=== PATIENT | male | born 1955 | race Caucasian/White ===

== ENCOUNTER 2018-01-18 20:13 | Inpatient (IN) | payer OTHER ==
[~2018-01-18] VITALS: Ht 182.9 cm; Wt 93.9 kg
[2018-01-18] MEDS ORDERED: ATEN5POW PO (20:43)
[2018-01-18] MEDS ORDERED: FAMOTIDINE 20 MG/2 ML ONE (21:13)
[2018-01-18 21:17] LABS: BASOPHILS # (AUTO) 0.05 x10^3/uL (0-0.1); BASOPHILS % (AUTO) 0 % (0-1); EOSINOPHILS # (AUTO) 0.11 x10^3/uL (0-0.4); EOSINOPHILS % (AUTO) 1 % (1-7); LYMPHOCYTES # (AUTO) 1.33 x10^3/uL (1-3.4); LYMPHOCYTES % (AUTO) 9 % (22-44); MD NO; MEAN CORPUSCULAR HEMOGLOBIN 31.5 pg (27.5-34.5); MEAN CORPUSCULAR HGB CONC 33.7 g/dL (33.2-36.2); MEAN CORPUSCULAR VOLUME 93.5 fL (81-97); MEAN PLATELET VOLUME 10.2 fL (7.4-10.4); MONOCYTES # (AUTO) 0.65 x10^3/uL (0.2-0.8); MONOCYTES % (AUTO) 4 % (2-9); NEUTROPHILS # (AUTO) 13.08 x10^3/uL (1.8-6.8); NEUTROPHILS % (AUTO) 86 % (42-75); PLATELET COUNT 295 x10^3/uL (130-400); RED BLOOD COUNT 5.06 x10^6/uL (4.38-5.82); RED CELL DISTRIBUTION WIDTH 13.6 % (9.4-14.8)
[2018-01-18 21:27] LABS: ALANINE AMINOTRANSFERASE 27 U/L (12-78); ANION GAP 10 mmol/L (5-15); CALCIUM 9.1 mg/dL (8.5-10.1); CHLORIDE 108 mmol/L (98-107); CREATININE 1.21 mg/dL (0.7-1.3)
[2018-01-18 21:30] LABS: ALKALINE PHOSPHATASE 55 U/L (45-117); BILIRUBIN,TOTAL 0.9 mg/dL (0.2-1.0); TOTAL PROTEIN 7.8 g/dL (6.4-8.2)
[2018-01-18] MEDS ORDERED: SODIUM CHLORIDE 0.9% 1,000ML IVBOLUS ONE (21:30)
[2018-01-18] MEDS ORDERED: ONDANSETRON ODT 4 MG PO ONE (21:30)
[2018-01-18] MEDS ORDERED: ONDANSETRON 2MG/ML, 2ML IVPush ONE (21:30)
[2018-01-18] MEDS ORDERED: FAMOTIDINE 20 MG/2 ML IVP ONE (21:30)
[2018-01-18] MEDS ORDERED: SODIUM CHLORIDE FLUSH 10ML SYR IVF ONE (21:30)
[2018-01-18 21:34] LABS: MICROSCOPIC NOT IND
[2018-01-18] MEDS ORDERED: ONDANSETRON ODT 4 MG ONE (21:40)
[2018-01-18 21:41] LABS: CULTURE INDICATED? NO
[2018-01-18] MEDS ORDERED: OMNIPAQUE 350 MG/ML, 100ML BOTTLE ONE (22:11)
[2018-01-18] MEDS ORDERED: CIPROFLOXACIN/PMX 400MG/200ML 200 ML IV ONE (23:00)
[2018-01-18] MEDS ORDERED: METRONIDAZOLE PMX 500MG/100ML 100 ML IV ONE (23:00)
[2018-01-18] MEDS ORDERED: SODIUM CHLORIDE 0.9% 1,000 ML IV ONE (23:03)
[2018-01-18] MEDS ORDERED: METRONIDAZOLE PMX 500MG/100ML 100 ML ONE (23:14)
[2018-01-18] MEDS ORDERED: MORPHINE SULFATE 4 MG/ML, 1ML ONE (23:15)
[2018-01-18] MEDS ORDERED: CIPROFLOXACIN/PMX 400MG/200ML 200 ML ONE (23:15)
[2018-01-18] MEDS: SODIUM CHLORIDE 0.9% 1,000 ML IV SCH (23:17)
[2018-01-18] MEDS ORDERED: MORPHINE SULFATE 4 MG/ML, 1ML IVPush PRN (23:30)
[2018-01-18] MEDS ORDERED: METRONIDAZOLE PMX 500MG/100ML 100 ML IV SCH (23:30)
[2018-01-18] MEDS ORDERED: ACETAMINOPHEN 325 MG TABLET PO PRN (23:30)
[2018-01-18] MEDS ORDERED: PROCHLORPERAZINE 5 MG/ML, 2ML IVPush PRN (23:30)
[2018-01-18] MEDS ORDERED: CIPROFLOXACIN/PMX 400MG/200ML 200 ML IV SCH (23:30)
[2018-01-19 00:13] VITALS: BP 125/75
[2018-01-19] MEDS ORDERED: KETOROLAC 30 MG/1 ML ONE (01:23)
[2018-01-19] MEDS: KETOROLAC 30 MG/1 ML IVPush PRN ×3 (01:26→16:28)
[2018-01-19 02:00] VITALS: BP 129/68
[2018-01-19] MEDS ORDERED: MORPHINE SULFATE 4 MG/ML, 1ML ONE ×3 (04:04→19:53)
[2018-01-19] MEDS: morphine SULFATE 10 MG/ML, 1ML IVPush PRN ×3 (04:07→19:57)
[2018-01-19 04:30] LABS: BASOPHILS # (AUTO) 0.06 x10^3/uL (0-0.1); BASOPHILS % (AUTO) 1 % (0-1); EOSINOPHILS # (AUTO) 0.01 x10^3/uL (0-0.4); EOSINOPHILS % (AUTO) 0 % (1-7); LYMPHOCYTES # (AUTO) 0.67 x10^3/uL (1-3.4); LYMPHOCYTES % (AUTO) 5 % (22-44); MD NO; MEAN CORPUSCULAR HEMOGLOBIN 31.5 pg (27.5-34.5); MEAN CORPUSCULAR HGB CONC 33.9 g/dL (33.2-36.2); MEAN CORPUSCULAR VOLUME 92.9 fL (81-97); MEAN PLATELET VOLUME 10.5 fL (7.4-10.4); MONOCYTES # (AUTO) 0.75 x10^3/uL (0.2-0.8); MONOCYTES % (AUTO) 6 % (2-9); NEUTROPHILS # (AUTO) 11.28 x10^3/uL (1.8-6.8); NEUTROPHILS % (AUTO) 88 % (42-75); PLATELET COUNT 277 x10^3/uL (130-400); RED BLOOD COUNT 4.67 x10^6/uL (4.38-5.82); RED CELL DISTRIBUTION WIDTH 13.8 % (9.4-14.8)
[2018-01-19 04:42] LABS: CHLORIDE 109 mmol/L (98-107)
[2018-01-19 04:46] LABS: ANION GAP 9 mmol/L (5-15); CALCIUM 8.2 mg/dL (8.5-10.1); CREATININE 1.09 mg/dL (0.7-1.3)
[2018-01-19] MEDS: ATENOLOL 25 MG TABLET PO SCH (06:02)
[2018-01-19] MEDS: SODIUM CHLORIDE 0.9% 1,000 ML IV SCH ×3 (07:45→19:51)
[2018-01-19 08:37] VITALS: BP 121/66
[2018-01-19] MEDS: METRONIDAZOLE PMX 500MG/100ML 100 ML IV SCH ×3 (08:58→23:31)
[2018-01-19] MEDS: CIPROFLOXACIN/PMX 400MG/200ML 200 ML IV SCH (12:24)
[2018-01-19 13:54] VITALS: BP 119/75
[2018-01-19 19:55] VITALS: BP 116/73
[2018-01-19] MEDS: ACETAMINOPHEN 500 MG TABLET PO PRN (23:35)
[2018-01-20] MEDS: CIPROFLOXACIN/PMX 400MG/200ML 200 ML IV SCH ×2 (00:47→13:01)
[2018-01-20 01:50] VITALS: BP 117/61
[2018-01-20] MEDS: SODIUM CHLORIDE 0.9% 1,000 ML IV SCH (04:04)
[2018-01-20 04:40] LABS: ANION GAP 4 mmol/L (5-15); CALCIUM 7.9 mg/dL (8.5-10.1); CHLORIDE 108 mmol/L (98-107); CREATININE 1.15 mg/dL (0.7-1.3)
[2018-01-20 04:46] LABS: BASOPHILS # (AUTO) 0.02 x10^3/uL (0-0.1); BASOPHILS % (AUTO) 0 % (0-1); EOSINOPHILS # (AUTO) 0.05 x10^3/uL (0-0.4); EOSINOPHILS % (AUTO) 1 % (1-7); LYMPHOCYTES # (AUTO) 1.25 x10^3/uL (1-3.4); LYMPHOCYTES % (AUTO) 12 % (22-44); MD NO; MEAN CORPUSCULAR HEMOGLOBIN 31.6 pg (27.5-34.5); MEAN CORPUSCULAR HGB CONC 33.8 g/dL (33.2-36.2); MEAN CORPUSCULAR VOLUME 93.5 fL (81-97); MEAN PLATELET VOLUME 10.6 fL (7.4-10.4); MONOCYTES # (AUTO) 0.48 x10^3/uL (0.2-0.8); MONOCYTES % (AUTO) 5 % (2-9); NEUTROPHILS # (AUTO) 8.76 x10^3/uL (1.8-6.8); NEUTROPHILS % (AUTO) 83 % (42-75); PLATELET COUNT 213 x10^3/uL (130-400); RED BLOOD COUNT 4.02 x10^6/uL (4.38-5.82); RED CELL DISTRIBUTION WIDTH 13.4 % (9.4-14.8)
[2018-01-20] MEDS: ATENOLOL 25 MG TABLET PO SCH (05:05)
[2018-01-20] MEDS: METRONIDAZOLE PMX 500MG/100ML 100 ML IV SCH ×2 (07:51→15:51)
[2018-01-20 07:56] VITALS: BP 120/84
[2018-01-20] MEDS ORDERED: MORPHINE SULFATE 4 MG/ML, 1ML ONE (09:25)
[2018-01-20] MEDS: KETOROLAC 30 MG/1 ML IVPush PRN (11:03)
[2018-01-20 12:44] VITALS: BP 154/81
[2018-01-20 20:05] VITALS: BP 156/83
[2018-01-20] MEDS: ACETAMINOPHEN 500 MG TABLET PO PRN (20:16)
[2018-01-20] MEDS: PIPERACILLIN/TAZO/PMX 3.375GM 50 ML IV SCH (23:59)
[2018-01-21 05:00] VITALS: BP 123/71
[2018-01-21] MEDS: ATENOLOL 25 MG TABLET PO SCH (06:15)
[2018-01-21] MEDS: PIPERACILLIN/TAZO/PMX 3.375GM 50 ML IV SCH ×4 (06:42→23:31)
[2018-01-21 06:53] LABS: CLOSTRIDIUM DIFFICILE ANTIGEN NEGATIVE; CLOSTRIDIUM DIFFICILE TOXIN NEGATIVE (Negative)
[2018-01-21 09:05] VITALS: BP 124/83
[2018-01-21] MEDS ORDERED: OMNIPAQUE 350 MG/ML, 100ML BOTTLE ONE (09:55)
[2018-01-21] MEDS: SODIUM CHLORIDE 0.9% 1,000 ML IV SCH ×2 (12:26→21:00)
[2018-01-21 13:00] VITALS: BP 108/66
[2018-01-21 19:53] VITALS: BP 136/73
[2018-01-22 01:10] VITALS: BP 143/80
[2018-01-22] MEDS: SODIUM CHLORIDE 0.9% 1,000 ML IV SCH ×3 (05:46→21:32)
[2018-01-22] MEDS: PIPERACILLIN/TAZO/PMX 3.375GM 50 ML IV SCH ×4 (05:46→23:57)
[2018-01-22] MEDS: ATENOLOL 25 MG TABLET PO SCH (06:00)
[2018-01-22 06:24] LABS: BASOPHILS # (AUTO) 0.05 x10^3/uL (0-0.1); BASOPHILS % (AUTO) 1 % (0-1); EOSINOPHILS # (AUTO) 0.06 x10^3/uL (0-0.4); EOSINOPHILS % (AUTO) 1 % (1-7); LYMPHOCYTES # (AUTO) 1.19 x10^3/uL (1-3.4); LYMPHOCYTES % (AUTO) 11 % (22-44); MD NO; MEAN CORPUSCULAR HEMOGLOBIN 31.7 pg (27.5-34.5); MEAN CORPUSCULAR HGB CONC 33.7 g/dL (33.2-36.2); MEAN CORPUSCULAR VOLUME 94.1 fL (81-97); MEAN PLATELET VOLUME 10.6 fL (7.4-10.4); MONOCYTES # (AUTO) 0.84 x10^3/uL (0.2-0.8); MONOCYTES % (AUTO) 8 % (2-9); NEUTROPHILS # (AUTO) 8.57 x10^3/uL (1.8-6.8); NEUTROPHILS % (AUTO) 80 % (42-75); PLATELET COUNT 274 x10^3/uL (130-400); RED BLOOD COUNT 4.97 x10^6/uL (4.38-5.82); RED CELL DISTRIBUTION WIDTH 13.7 % (9.4-14.8)
[2018-01-22 06:26] LABS: ANION GAP 10 mmol/L (5-15); CALCIUM 8.4 mg/dL (8.5-10.1); CHLORIDE 111 mmol/L (98-107); CREATININE 1.01 mg/dL (0.7-1.3)
[2018-01-22 06:45] VITALS: BP 136/88
[2018-01-22 12:30] VITALS: BP 140/92
[2018-01-22 20:00] VITALS: BP 145/112
[2018-01-23 00:25] VITALS: BP 127/83
[2018-01-23] MEDS: SODIUM CHLORIDE 0.9% 1,000 ML IV SCH ×3 (04:20→20:55)
[2018-01-23] MEDS: PIPERACILLIN/TAZO/PMX 3.375GM 50 ML IV SCH ×3 (05:58→17:38)
[2018-01-23] MEDS: ATENOLOL 25 MG TABLET PO SCH ×2 (05:58→06:00)
[2018-01-23 07:23] LABS: BASOPHILS # (AUTO) 0.03 x10^3/uL (0-0.1); BASOPHILS % (AUTO) 0 % (0-1); EOSINOPHILS % (AUTO) 1 % (1-7); LYMPHOCYTES # (AUTO) 1.22 x10^3/uL (1-3.4); LYMPHOCYTES % (AUTO) 10 % (22-44); MD NO; MEAN CORPUSCULAR HEMOGLOBIN 31.3 pg (27.5-34.5); MEAN CORPUSCULAR HGB CONC 33.7 g/dL (33.2-36.2); MEAN CORPUSCULAR VOLUME 92.8 fL (81-97); MEAN PLATELET VOLUME 10.2 fL (7.4-10.4); MONOCYTES # (AUTO) 1.08 x10^3/uL (0.2-0.8); MONOCYTES % (AUTO) 9 % (2-9); NEUTROPHILS % (AUTO) 79 % (42-75); PLATELET COUNT 314 x10^3/uL (130-400); RED BLOOD COUNT 4.96 x10^6/uL (4.38-5.82); RED CELL DISTRIBUTION WIDTH 13.4 % (9.4-14.8)
[2018-01-23 07:34] LABS: ANION GAP 13 mmol/L (5-15); CHLORIDE 111 mmol/L (98-107); CREATININE 1.06 mg/dL (0.7-1.3)
[2018-01-23 07:52] VITALS: BP 136/84
[2018-01-23 13:29] VITALS: BP 128/93
[2018-01-23 20:38] VITALS: BP 150/88
[2018-01-24] MEDS: PIPERACILLIN/TAZO/PMX 3.375GM 50 ML IV SCH ×3 (00:04→12:30)
[2018-01-24 02:58] VITALS: BP 137/89
[2018-01-24] MEDS: SODIUM CHLORIDE 0.9% 1,000 ML IV SCH ×2 (04:00→12:00)
[2018-01-24] MEDS: ATENOLOL 25 MG TABLET PO SCH (05:41)
[2018-01-24 06:01] LABS: BASOPHILS # (AUTO) 0.07 x10^3/uL (0-0.1); BASOPHILS % (AUTO) 1 % (0-1); EOSINOPHILS % (AUTO) 1 % (1-7); LYMPHOCYTES # (AUTO) 1.41 x10^3/uL (1-3.4); LYMPHOCYTES % (AUTO) 13 % (22-44); MD NO; MEAN CORPUSCULAR HEMOGLOBIN 31.3 pg (27.5-34.5); MEAN CORPUSCULAR HGB CONC 33.7 g/dL (33.2-36.2); MEAN PLATELET VOLUME 9.9 fL (7.4-10.4); MONOCYTES % (AUTO) 10 % (2-9); NEUTROPHILS % (AUTO) 76 % (42-75); PLATELET COUNT 290 x10^3/uL (130-400); RED BLOOD COUNT 4.26 x10^6/uL (4.38-5.82); RED CELL DISTRIBUTION WIDTH 13.2 % (9.4-14.8)
[2018-01-24 06:05] LABS: ANION GAP 9 mmol/L (5-15); CALCIUM 7.8 mg/dL (8.5-10.1); CHLORIDE 113 mmol/L (98-107)
[2018-01-24 06:07] LABS: CREATININE 0.92 mg/dL (0.7-1.3)
[2018-01-24 06:50] VITALS: BP 112/65
[2018-01-24 12:00] VITALS: BP 128/79
[2018-01-24] MEDS: ACETAMINOPHEN 500 MG TABLET PO PRN ×2 (12:06→18:00)
[2018-01-24 14:48] VITALS: BP 136/91
[2018-01-24] MEDS ORDERED: AMOXICILLIN/CLAV 875-125MG TABLET PO SCH ×2 (16:30→22:00)
[2018-01-24] MEDS: AMOXICILLIN/CLAV 875-125MG TABLET PO SCH (17:37)
[2018-01-24 19:26] VITALS: BP 167/89
[2018-01-25 01:27] VITALS: BP 120/89
[2018-01-25] MEDS: AMOXICILLIN/CLAV 875-125MG TABLET PO SCH ×2 (01:35→09:49)
[2018-01-25 05:54] LABS: BASOPHILS # (AUTO) 0.04 x10^3/uL (0-0.1); BASOPHILS % (AUTO) 0 % (0-1); EOSINOPHILS # (AUTO) 0.09 x10^3/uL (0-0.4); EOSINOPHILS % (AUTO) 1 % (1-7); LYMPHOCYTES # (AUTO) 1.34 x10^3/uL (1-3.4); LYMPHOCYTES % (AUTO) 11 % (22-44); MD NO; MEAN CORPUSCULAR HEMOGLOBIN 31.8 pg (27.5-34.5); MEAN CORPUSCULAR HGB CONC 34.1 g/dL (33.2-36.2); MEAN CORPUSCULAR VOLUME 93.3 fL (81-97); MEAN PLATELET VOLUME 11.1 fL (7.4-10.4); MONOCYTES # (AUTO) 1.18 x10^3/uL (0.2-0.8); MONOCYTES % (AUTO) 10 % (2-9); NEUTROPHILS # (AUTO) 9.31 x10^3/uL (1.8-6.8); NEUTROPHILS % (AUTO) 78 % (42-75); PLATELET COUNT 306 x10^3/uL (130-400); RED CELL DISTRIBUTION WIDTH 13.2 % (9.4-14.8)
[2018-01-25 06:17] LABS: CALCIUM 8.3 mg/dL (8.5-10.1); CREATININE 0.85 mg/dL (0.7-1.3)
[2018-01-25 06:21] LABS: ANION GAP 10 mmol/L (5-15); CHLORIDE 109 mmol/L (98-107)
[2018-01-25 06:35] VITALS: BP 150/82
[2018-01-25] MEDS: ATENOLOL 25 MG TABLET PO SCH (06:36)
[2018-01-25 08:06] VITALS: BP 145/86
[2018-01-25] MEDS: ACETAMINOPHEN 500 MG TABLET PO PRN (09:49)
[2018-01-25] MEDS ORDERED: SODIUM CHLORIDE 0.9% 500 ML IV SCH (11:00)
[2018-01-25 12:44] VITALS: BP 169/97
[2018-01-25] MEDS ORDERED: OMNIPAQUE 350 MG/ML, 100ML BOTTLE ONE (13:19)
[2018-01-25] MEDS: SODIUM CHLORIDE 0.9% 1,000 ML IV SCH ×2 (15:53→23:27)
[2018-01-25] MEDS: PIPERACILLIN/TAZO/PMX 3.375GM 50 ML IV SCH ×2 (15:53→23:26)
[2018-01-25] MEDS ORDERED: FENTANYL PF 250 MCG/5ML ONE (18:09)
[2018-01-25] MEDS ORDERED: DEXAMETHASONE 4 MG/ML, 1ML ONE (18:57)
[2018-01-25] MEDS ORDERED: MEPERIDINE/PF 25MG/0.5ML IVPush PRN (19:00)
[2018-01-25] MEDS ORDERED: ACETAMINOPHEN 325 MG TABLET PO PRN (19:00)
[2018-01-25] MEDS ORDERED: FENTANYL PF 100 MCG/2ML IV PRN (19:00)
[2018-01-25] MEDS ORDERED: LABETALOL 5MG/ML, 20ML IV PRN (19:00)
[2018-01-25] MEDS ORDERED: ONDANSETRON ODT 4 MG PO PRN (19:00)
[2018-01-25] MEDS ORDERED: ONDANSETRON 2MG/ML, 2ML IVPush PRN (19:00)
[2018-01-25] MEDS ORDERED: PROMETHAZINE 12.5 MG SUPP PR PRN (19:00)
[2018-01-25] MEDS ORDERED: hydrALAzine 20 MG/ML, 1ML IV PRN (19:00)
[2018-01-25] MEDS ORDERED: OXYcodone 5 MG/5 ML ORAL.SOL UDC PO PRN (19:00)
[2018-01-25] MEDS ORDERED: METOPROLOL 1 MG/ML, 5ML ONE (19:31)
[2018-01-25] MEDS ORDERED: PROPOFOL 10 MG/ML, 20ML ONE ×3 (20:42)
[2018-01-25] MEDS ORDERED: ROCURONIUM 10 MG/ML,10ML ONE (20:43)
[2018-01-25] MEDS ORDERED: SUCCINYLCHOLINE 20 MG/ML, 10ML ONE (20:43)
[2018-01-25] MEDS ORDERED: CEFOTETAN PMX 2GM/50ML 50 ML ONE (20:44)
[2018-01-25] MEDS ORDERED: MEPERIDINE/PF 25MG/0.5ML ONE (21:12)
[2018-01-25] MEDS ORDERED: HYDROmorphone 2 MG/ML, 1ML ONE (21:12)
[2018-01-25] MEDS: HYDROmorphone 1 MG/ML, 1ML IV PRN ×2 (21:34→21:43)
[2018-01-25] MEDS ORDERED: DILTIAZEM 125 MG in SODIUM CHLORIDE 0.9% 100 ML IV PRN (23:00)
[2018-01-26] MEDS ORDERED: LORazepam 2 MG/ML, 1ML IM PRN
[2018-01-26] MEDS: ATENOLOL 25 MG TABLET PO SCH (03:59)
[2018-01-26 04:00] VITALS: BP 108/73
[2018-01-26] MEDS: PIPERACILLIN/TAZO/PMX 3.375GM 50 ML IV SCH ×4 (04:10→20:37)
[2018-01-26] MEDS: SODIUM CHLORIDE 0.9% 1,000 ML IV SCH ×2 (08:02→22:12)
[2018-01-26] MEDS: morphine SULFATE 10 MG/ML, 1ML IVPush PRN ×5 (08:15→17:48)
[2018-01-26] MEDS ORDERED: ATENOLOL 25 MG TABLET PO ONE (15:30)
[2018-01-26] MEDS ORDERED: MORPHINE SULFATE 4 MG/ML, 1ML ONE (20:33)
[2018-01-26 20:43] VITALS: BP 129/87
[2018-01-26] MEDS ORDERED: morphine SULFATE 10 MG/ML, 1ML IVPush PRN (21:00)
[2018-01-27] MEDS: ACETAMINOPHEN 500 MG TABLET PO PRN (00:23)
[2018-01-27] MEDS: PIPERACILLIN/TAZO/PMX 3.375GM 50 ML IV SCH ×4 (02:28→20:05)
[2018-01-27 04:06] VITALS: BP 125/80
[2018-01-27 05:10] LABS: ALANINE AMINOTRANSFERASE 19 U/L (12-78); ALBUMIN 2.3 g/dL (3.4-5.0); ANION GAP 4 mmol/L (5-15); CALCIUM 7.9 mg/dL (8.5-10.1); CHLORIDE 112 mmol/L (98-107); CREATININE 1.04 mg/dL (0.7-1.3)
[2018-01-27 05:12] LABS: ALKALINE PHOSPHATASE 39 U/L (45-117); BILIRUBIN,TOTAL 0.8 mg/dL (0.2-1.0); TOTAL PROTEIN 5.9 g/dL (6.4-8.2)
[2018-01-27 05:16] LABS: BASOPHILS # (AUTO) 0.02 x10^3/uL (0-0.1); BASOPHILS % (AUTO) 0 % (0-1); EOSINOPHILS # (AUTO) 0.14 x10^3/uL (0-0.4); EOSINOPHILS % (AUTO) 2 % (1-7); LYMPHOCYTES # (AUTO) 1.07 x10^3/uL (1-3.4); LYMPHOCYTES % (AUTO) 11 % (22-44); MD NO; MEAN CORPUSCULAR HGB CONC 32.8 g/dL (33.2-36.2); MEAN CORPUSCULAR VOLUME 94.4 fL (81-97); MEAN PLATELET VOLUME 10.9 fL (7.4-10.4); MONOCYTES # (AUTO) 0.81 x10^3/uL (0.2-0.8); MONOCYTES % (AUTO) 9 % (2-9); NEUTROPHILS # (AUTO) 7.42 x10^3/uL (1.8-6.8); NEUTROPHILS % (AUTO) 79 % (42-75); PLATELET COUNT 351 x10^3/uL (130-400); RED BLOOD COUNT 4.14 x10^6/uL (4.38-5.82); RED CELL DISTRIBUTION WIDTH 13.5 % (9.4-14.8)
[2018-01-27] MEDS: ATENOLOL 50 MG TABLET PO SCH (05:47)
[2018-01-27 06:50] VITALS: BP 125/88
[2018-01-27] MEDS ORDERED: OXYcodone IR 5MG TABLET PO PRN (07:30)
[2018-01-27] MEDS: ENOXAPARIN 40 MG/0.4 ML SQ SCH (09:11)
[2018-01-27] MEDS: ACETAMINOPHEN 500 MG TABLET PO SCH ×3 (09:11→20:05)
[2018-01-27] MEDS ORDERED: LACTATED RINGERS 500 ML IVBOLUS ONE ×2 (11:30→14:00)
[2018-01-27] MEDS: SODIUM CHLORIDE 0.9% 1,000 ML IV SCH (13:55)
[2018-01-27 14:10] VITALS: BP 126/54
[2018-01-27 14:39] LABS: TROPONIN I < 0.015 ng/mL (0.000-0.045)
[2018-01-27 18:48] VITALS: BP 125/82
[2018-01-27] MEDS: ASPIRIN 81 MG TABLET EC PO SCH (22:25)
[2018-01-28 00:57] VITALS: BP 139/85
[2018-01-28] MEDS: SODIUM CHLORIDE 0.9% 1,000 ML IV SCH (02:19)
[2018-01-28] MEDS: PIPERACILLIN/TAZO/PMX 3.375GM 50 ML IV SCH ×4 (02:19→20:56)
[2018-01-28] MEDS: ACETAMINOPHEN 500 MG TABLET PO SCH ×3 (03:14→15:00)
[2018-01-28 04:55] LABS: BASOPHILS # (AUTO) 0.07 x10^3/uL (0-0.1); BASOPHILS % (AUTO) 1 % (0-1); EOSINOPHILS % (AUTO) 1 % (1-7); LYMPHOCYTES # (AUTO) 0.97 x10^3/uL (1-3.4); LYMPHOCYTES % (AUTO) 11 % (22-44); MD NO; MEAN CORPUSCULAR HEMOGLOBIN 30.9 pg (27.5-34.5); MEAN CORPUSCULAR HGB CONC 33.1 g/dL (33.2-36.2); MEAN CORPUSCULAR VOLUME 93.5 fL (81-97); MONOCYTES # (AUTO) 0.54 x10^3/uL (0.2-0.8); MONOCYTES % (AUTO) 6 % (2-9); NEUTROPHILS # (AUTO) 7.32 x10^3/uL (1.8-6.8); NEUTROPHILS % (AUTO) 81 % (42-75); PLATELET COUNT 370 x10^3/uL (130-400); RED BLOOD COUNT 4.46 x10^6/uL (4.38-5.82); RED CELL DISTRIBUTION WIDTH 13.6 % (9.4-14.8)
[2018-01-28 05:06] LABS: ANION GAP 8 mmol/L (5-15); CALCIUM 7.8 mg/dL (8.5-10.1); CHLORIDE 107 mmol/L (98-107); CREATININE 0.87 mg/dL (0.7-1.3)
[2018-01-28 05:08] VITALS: BP 154/104
[2018-01-28] MEDS: ATENOLOL 50 MG TABLET PO SCH (05:10)
[2018-01-28] MEDS ORDERED: POTASSIUM CHLORIDE 40 MEQ in SODIUM CHLORIDE 0.9% 500 ML IV ONE (06:30)
[2018-01-28] MEDS ORDERED: D5%-0.45NACL+KCL 20MEQ 1,000 ML IV SCH (06:30)
[2018-01-28] MEDS: METOCLOPRAMIDE 5 MG/ML, 2ML IVPush SCH ×3 (09:16→20:57)
[2018-01-28] MEDS: ENOXAPARIN 40 MG/0.4 ML SQ SCH (09:17)
[2018-01-28 15:42] VITALS: BP 128/83
[2018-01-28] MEDS ORDERED: PANTOPRAZOLE 40 MG IV ONE (16:25)
[2018-01-28] MEDS: PANTOPRAZOLE 40 MG IV IVPush SCH (16:29)
[2018-01-28] MEDS ORDERED: ATENOLOL 50 MG TABLET PO ONE (16:30)
[2018-01-28] MEDS ORDERED: MELATONIN 5 MG TABLET PO PRN (16:30)
[2018-01-28 20:53] VITALS: BP 145/92
[2018-01-28] MEDS: ASPIRIN 81 MG TABLET EC PO SCH (20:57)
[2018-01-28] MEDS ORDERED: POTASSIUM CHLORIDE 10% 40 MEQ/30 ML UDC PO SCH (21:00)
[2018-01-29] MEDS: PIPERACILLIN/TAZO/PMX 3.375GM 50 ML IV SCH ×4 (03:08→20:54)
[2018-01-29] MEDS: METOCLOPRAMIDE 5 MG/ML, 2ML IVPush SCH ×4 (03:09→20:55)
[2018-01-29 03:10] VITALS: BP 133/82
[2018-01-29 04:45] LABS: BASOPHILS # (AUTO) 0.04 x10^3/uL (0-0.1); BASOPHILS % (AUTO) 1 % (0-1); EOSINOPHILS % (AUTO) 3 % (1-7); LYMPHOCYTES # (AUTO) 1.15 x10^3/uL (1-3.4); LYMPHOCYTES % (AUTO) 17 % (22-44); MD NO; MEAN CORPUSCULAR HEMOGLOBIN 31.1 pg (27.5-34.5); MEAN CORPUSCULAR HGB CONC 33.2 g/dL (33.2-36.2); MEAN CORPUSCULAR VOLUME 93.8 fL (81-97); MEAN PLATELET VOLUME 10.8 fL (7.4-10.4); MONOCYTES # (AUTO) 0.68 x10^3/uL (0.2-0.8); MONOCYTES % (AUTO) 10 % (2-9); NEUTROPHILS # (AUTO) 4.61 x10^3/uL (1.8-6.8); NEUTROPHILS % (AUTO) 69 % (42-75); PLATELET COUNT 349 x10^3/uL (130-400); RED BLOOD COUNT 4.12 x10^6/uL (4.38-5.82); RED CELL DISTRIBUTION WIDTH 13.3 % (9.4-14.8)
[2018-01-29 04:55] LABS: CHLORIDE 111 mmol/L (98-107)
[2018-01-29 05:03] LABS: ALANINE AMINOTRANSFERASE 23 U/L (12-78); ALBUMIN 2.3 g/dL (3.4-5.0); ALKALINE PHOSPHATASE 61 U/L (45-117); ANION GAP 7 mmol/L (5-15); BILIRUBIN,TOTAL 0.9 mg/dL (0.2-1.0); CALCIUM 7.5 mg/dL (8.5-10.1); CREATININE 0.89 mg/dL (0.7-1.3); TOTAL PROTEIN 5.8 g/dL (6.4-8.2)
[2018-01-29] MEDS ORDERED: ATENOLOL 50 MG TABLET PO SCH (06:00)
[2018-01-29] MEDS: ATENOLOL 50 MG TABLET PO SCH (06:30)
[2018-01-29 07:00] VITALS: BP 136/92
[2018-01-29] MEDS: ENOXAPARIN 40 MG/0.4 ML SQ SCH (08:18)
[2018-01-29 13:55] VITALS: BP 138/95
[2018-01-29] MEDS: D5%-0.45NACL+KCL 20MEQ 1,000 ML IV SCH (16:02)
[2018-01-29] MEDS: PANTOPRAZOLE 40 MG IV IVPush SCH (17:10)
[2018-01-29 20:00] VITALS: BP 129/89
[2018-01-29] MEDS: ASPIRIN 81 MG TABLET EC PO SCH (20:39)
[2018-01-29] MEDS: ACETAMINOPHEN 500 MG TABLET PO PRN (20:54)
[2018-01-30] MEDS: METOCLOPRAMIDE 5 MG/ML, 2ML IVPush SCH ×2 (02:49→07:16)
[2018-01-30] MEDS: PIPERACILLIN/TAZO/PMX 3.375GM 50 ML IV SCH (02:49)
[2018-01-30 03:27] VITALS: BP 127/78
[2018-01-30 05:16] LABS: CHLORIDE 106 mmol/L (98-107)
[2018-01-30 05:23] LABS: ALANINE AMINOTRANSFERASE 56 U/L (12-78); ALBUMIN 2.5 g/dL (3.4-5.0); ALKALINE PHOSPHATASE 80 U/L (45-117); ANION GAP 9 mmol/L (5-15); BILIRUBIN,TOTAL 1.4 mg/dL (0.2-1.0); CALCIUM 7.8 mg/dL (8.5-10.1); CREATININE 0.97 mg/dL (0.7-1.3); TOTAL PROTEIN 6.2 g/dL (6.4-8.2)
[2018-01-30] MEDS: ATENOLOL 50 MG TABLET PO SCH (05:58)
[2018-01-30 06:26] LABS: BASOPHILS # (AUTO) 0.06 x10^3/uL (0-0.1); BASOPHILS % (AUTO) 1 % (0-1); EOSINOPHILS # (AUTO) 0.15 x10^3/uL (0-0.4); EOSINOPHILS % (AUTO) 2 % (1-7); LYMPHOCYTES # (AUTO) 0.81 x10^3/uL (1-3.4); LYMPHOCYTES % (AUTO) 10 % (22-44); MD SCAN; MEAN CORPUSCULAR HEMOGLOBIN 31.2 pg (27.5-34.5); MEAN CORPUSCULAR HGB CONC 33.3 g/dL (33.2-36.2); MEAN CORPUSCULAR VOLUME 93.8 fL (81-97); MEAN PLATELET VOLUME 11.5 fL (7.4-10.4); MONOCYTES % (AUTO) 8 % (2-9); NEUTROPHILS % (AUTO) 80 % (42-75); PLATELET COUNT 377 x10^3/uL (130-400); RED BLOOD COUNT 4.36 x10^6/uL (4.38-5.82); RED CELL DISTRIBUTION WIDTH 13.3 % (9.4-14.8)
[2018-01-30] MEDS: D5%-0.45NACL+KCL 20MEQ 1,000 ML IV SCH (07:04)
[2018-01-30] MEDS: ENOXAPARIN 40 MG/0.4 ML SQ SCH (07:21)
[2018-01-30 07:25] VITALS: BP 128/92
[2018-01-30] MEDS ORDERED: ATEN50TA41 PO (08:19)
[2018-01-30] MEDS ORDERED: ASPI-621 PO (08:19)
[2018-01-30] MEDS ORDERED: AMOX1TAB12 PO (08:19)
[2018-01-30] MEDS ORDERED: AMOXICILLIN/CLAV 875-125MG TABLET PO SCH (09:00)
[2018-01-30 14:20] VITALS: BP 130/83
[2018-01-30] MEDS ORDERED: PANTOPROZOLE 40MG TABLET PO SCH (16:00)
== END 2018-01-30 16:00 | disposition home health service (06) | DRG 329 ==
LOC: ED 22:43 → EDIP 23:03 → SUATTDRO 23:17 → 3NW 23:50 → 4NOR 01-21 09:35 → CCU 01-25 22:21 → 5SO 01-26 18:37 → DCLOUNGE 01-30 15:50
PROVIDERS: ADMIT Hospitalist; ATTEND Hospitalist
PROC: 0D9670Z Drainage of Stomach with Drainage Device, Via Natural or Artificial Opening (ICD-10-PCS; 2018-01-21)
PROC: 0D1N0Z4 Bypass Sigmoid Colon to Cutaneous, Open Approach (ICD-10-PCS; 2018-01-25)
PROC: 0DBN0ZZ Excision of Sigmoid Colon, Open Approach (ICD-10-PCS; principal; 2018-01-25 18:00)
DX: K56.609 Unspecified intestinal obstruction, unspecified as to partial versus complete obstruction (principal); E43 Unspecified severe protein-calorie malnutrition; K57.20 Diverticulitis of large intestine with perforation and abscess without bleeding; F19.20 Other psychoactive substance dependence, uncomplicated; J98.11 Atelectasis; I48.91 Unspecified atrial fibrillation; F17.210 Nicotine dependence, cigarettes, uncomplicated; I10 Essential (primary) hypertension; I34.0 Nonrheumatic mitral (valve) insufficiency; I35.8 Other nonrheumatic aortic valve disorders; Z79.82 Long term (current) use of aspirin; Z93.3 Colostomy status; Z68.28 Body mass index [BMI] 28.0-28.9, adult
CPT/HCPCS: 36415; 71046; 74018; 74177; 80048; 80053; 81003; 83690; 83735; 84100; 84443; 84484; 85014; 85018; 85025; 86850; 86900; 87081; 87324; 88307; 93306; 96374; 96375; C1729; J0744; J1100; J1170; J1650; J1885; J2175; J2543; J2704; J3010; J3480; J7120; Q9967; C1765; C9113; J0330; J0780; J2270; J2765; J7030; J7040; S0028; S0074

== ENCOUNTER → 2018-02-28 | Outpatient (CLI) | payer OTHER ==
[~2018-02-28] MED LIST: AMOX1TAB12 PO; ASPI-621 PO; ATEN50TA41 PO; ATEN5POW PO; REGADENOSON 0.4 MG/5 ML SYRINGE ONE
== END | disposition home or self-care (01) ==
LOC: CFH 12:06
PROVIDERS: ATTEND Internal Medicine Cardiovascular Disease
DX: Z01.810 Encounter for preprocedural cardiovascular examination (principal); I10 Essential (primary) hypertension; I48.91 Unspecified atrial fibrillation; E78.5 Hyperlipidemia, unspecified
CPT/HCPCS: 78452; 93017; A9502; J2785

== ENCOUNTER 2018-06-28 05:48 | Inpatient (IN) | payer OTHER ==
[~2018-06-28] VITALS: Ht 180.3 cm; Wt 96.4 kg
[~2018-06-28 05:48] MED LIST changes: -REGADENOSON 0.4 MG/5 ML SYRINGE ONE
[2018-06-28] MEDS ORDERED: BUPIVACAINE/PF-EPI 0.5% 1:200K ONE (06:12)
[2018-06-28] MEDS ORDERED: INDOCYANINE GREEN 25 MG VIAL ONE (06:12)
[2018-06-28 06:57] VITALS: BP 120/81
[2018-06-28] MEDS ORDERED: METO-99 PO (06:57)
[2018-06-28] MEDS ORDERED: RIVA10TA PO (06:57)
[2018-06-28] MEDS ORDERED: LACTATED RINGERS 1,000 ML IV SCH ×2 (07:05→15:00)
[2018-06-28] MEDS ORDERED: FENTANYL PF 100 MCG/2ML IV PRN (08:00)
[2018-06-28] MEDS ORDERED: HYDROmorphone 2 MG/ML, 1ML IV PRN (08:00)
[2018-06-28] MEDS ORDERED: ONDANSETRON 2MG/ML, 2ML IVPush PRN (08:00)
[2018-06-28] MEDS ORDERED: OXYcodone 5 MG/5 ML ORAL.SOL UDC PO PRN (08:00)
[2018-06-28] MEDS ORDERED: LABETALOL 5MG/ML, 20ML IV PRN (08:00)
[2018-06-28] MEDS ORDERED: MIDAZOLAM 1 MG/ML, 2ML IV PRN (08:00)
[2018-06-28] MEDS ORDERED: MEPERIDINE/PF 25MG/0.5ML IVPush PRN (08:00)
[2018-06-28] MEDS ORDERED: LIDOCAINE GEL 2%, 5ML ONE (08:03)
[2018-06-28] MEDS ORDERED: MIDAZOLAM 1 MG/ML, 2ML ONE (08:04)
[2018-06-28] MEDS ORDERED: FENTANYL PF 100 MCG/2ML ONE ×3 (08:05→11:14)
[2018-06-28] MEDS ORDERED: METOCLOPRAMIDE 5 MG/ML, 2ML ONE (08:05)
[2018-06-28] MEDS ORDERED: DEXAMETHASONE 4 MG/ML, 1ML ONE (08:06)
[2018-06-28] MEDS ORDERED: ONDANSETRON 2MG/ML, 2ML ONE (08:06)
[2018-06-28] MEDS ORDERED: ROCURONIUM 10MG/ML,5ML ONE ×2 (08:08→09:00)
[2018-06-28] MEDS ORDERED: PROPOFOL 10 MG/ML, 20ML ONE (08:08)
[2018-06-28] MEDS ORDERED: LIDOCAINE-MPF 2% ,5ML ONE (08:08)
[2018-06-28] MEDS ORDERED: GLYCOPYRROLATE 0.2MG/1ML, 5ML ONE (08:15)
[2018-06-28] MEDS ORDERED: NEOSTIGMINE 1 MG/ML, 10ML ONE (08:15)
[2018-06-28] MEDS ORDERED: CEFAZOLIN 1,000 MG ONE ×2 (08:20)
[2018-06-28] MEDS ORDERED: BUPIVACAINE/PF-EPI 0.5% 1:200K INFIL ONE (08:42)
[2018-06-28] MEDS ORDERED: OXYcodone 5 MG/5 ML ORAL.SOL UDC ONE (12:45)
[2018-06-28] MEDS ORDERED: MEPERIDINE/PF 50 MG/ML ONE (12:49)
[2018-06-28] MEDS: ACETAMINOPHEN 325 MG TABLET PO SCH ×3 (14:30→21:24)
[2018-06-28] MEDS ORDERED: LORazepam 2 MG/ML, 1ML IVPush PRN (14:30)
[2018-06-28] MEDS ORDERED: LORazepam 1MG TABLET PO PRN (14:30)
[2018-06-28] MEDS ORDERED: DEXAMETHASONE 4 MG/ML, 1ML IVPush PRN (14:30)
[2018-06-28] MEDS ORDERED: HALOPERIDOL 5 MG/ML IVPush PRN (14:30)
[2018-06-28] MEDS ORDERED: DIPHENHYDRAMINE 50 MG/ML, 1ML IVPush PRN (14:30)
[2018-06-28] MEDS ORDERED: OXYcodone IR 5MG TABLET PO PRN (14:30)
[2018-06-28] MEDS ORDERED: SCOPOLAMINE PATCH, 1.5MG PATCH.TD72 TD PRN (14:30)
[2018-06-28] MEDS ORDERED: MORPHINE SULFATE 4 MG/ML, 1ML IVPush PRN (14:30)
[2018-06-28] MEDS ORDERED: DIPHENHYDRAMINE 25 MG CAPSULE PO PRN (14:30)
[2018-06-28] MEDS ORDERED: ONDANSETRON 2MG/ML, 2ML IV PRN (14:30)
[2018-06-28] MEDS: KETOROLAC 30 MG/1 ML IVPush SCH ×2 (15:53→20:29)
[2018-06-28] MEDS: ACETAMINOPHEN 500 MG TABLET PO SCH ×2 (15:53→20:29)
[2018-06-28 18:28] VITALS: BP 118/63
[2018-06-29 00:26] VITALS: BP 143/81
[2018-06-29] MEDS: ACETAMINOPHEN 500 MG TABLET PO SCH ×2 (02:24→08:46)
[2018-06-29] MEDS: KETOROLAC 30 MG/1 ML IVPush SCH ×2 (02:24→08:46)
[2018-06-29 03:49] VITALS: BP 149/79
[2018-06-29 05:21] LABS: BASOPHILS # (AUTO) 0.04 x10^3/uL (0-0.1); BASOPHILS % (AUTO) 0 % (0-1); EOSINOPHILS # (AUTO) 0.05 x10^3/uL (0-0.4); EOSINOPHILS % (AUTO) 0 % (1-7); LYMPHOCYTES % (AUTO) 10 % (22-44); MD NO; MEAN CORPUSCULAR HEMOGLOBIN 31.3 pg (27.5-34.5); MEAN CORPUSCULAR HGB CONC 33.8 g/dL (33.2-36.2); MEAN CORPUSCULAR VOLUME 92.5 fL (81-97); MEAN PLATELET VOLUME 10.5 fL (7.4-10.4); MONOCYTES # (AUTO) 1.24 x10^3/uL (0.2-0.8); MONOCYTES % (AUTO) 9 % (2-9); NEUTROPHILS # (AUTO) 10.85 x10^3/uL (1.8-6.8); NEUTROPHILS % (AUTO) 80 % (42-75); PLATELET COUNT 268 x10^3/uL (130-400); RED BLOOD COUNT 5.14 x10^6/uL (4.38-5.82); RED CELL DISTRIBUTION WIDTH 13.2 % (9.4-14.8)
[2018-06-29 05:31] LABS: CHLORIDE 103 mmol/L (98-107)
[2018-06-29 05:39] LABS: ALBUMIN 3.4 g/dL (3.4-5.0); ANION GAP 9 mmol/L (5-15); CALCIUM 8.6 mg/dL (8.5-10.1); CREATININE 1.19 mg/dL (0.7-1.3)
[2018-06-29] MEDS: ACETAMINOPHEN 325 MG TABLET PO SCH ×2 (06:24→08:49)
[2018-06-29 08:09] VITALS: BP 150/92
[2018-06-29] MEDS ORDERED: ENOXAPARIN 40 MG/0.4 ML SQ SCH (09:00)
[2018-06-29] MEDS ORDERED: OXYC-302 PO (11:00)
== END 2018-06-29 11:40 | disposition home or self-care (01) | DRG 346 ==
LOC: ORIP 05:48 → 4NOR 13:50 → DCLOUNGE 06-29 11:15
PROVIDERS: ADMIT Colon & Rectal Surgery; ATTEND Colon & Rectal Surgery
PROC: 0DSL0ZZ Reposition Transverse Colon, Open Approach (ICD-10-PCS; principal; 2018-06-28 08:00)
DX: Z43.3 Encounter for attention to colostomy (principal); I48.91 Unspecified atrial fibrillation; I10 Essential (primary) hypertension; Z93.3 Colostomy status
CPT/HCPCS: 36415; J3490; 80048; 82040; 83735; 85025; 88307; 93005; G0378; J0690; J1100; J1885; J2175; J2250; J2405; J2704; J2710; J3010; J2765; J7120

== ENCOUNTER → 2020-07-01 | Outpatient (CLI) | payer OTHER ==
[~2020-07-01] MED LIST changes: -ASPI-621 PO; +ASPI81TA45 PO; +METO-99 PO; +OXYC-302 PO; +REGADENOSON 0.4 MG/5 ML SYRINGE ONE; +RIVA10TA2 PO
== END | disposition home or self-care (01) ==
LOC: CFH 08:49
PROVIDERS: ATTEND Internal Medicine Cardiovascular Disease
DX: Z13.6 Encounter for screening for cardiovascular disorders (principal); I08.0 Rheumatic disorders of both mitral and aortic valves; I25.10 Atherosclerotic heart disease of native coronary artery without angina pectoris; I10 Essential (primary) hypertension; E78.2 Mixed hyperlipidemia; I42.9 Cardiomyopathy, unspecified
CPT/HCPCS: 75571; 78452; 93017; 93306; A9502; J2785